=== PATIENT | male | born 1990 | race African-American/Black ===

== ENCOUNTER 2017-06-12 23:15 | Emergency (ER) | payer BC, OTHER ==
--- NOTE | 2017-06-13 00:23 | EDM.PDOC ---
ED HPI GENERAL MEDICAL PROBLEM - General Chief Complaint: Chest Pain Stated Complaint: CHEST PAIN Time Seen by Provider: 06/12/17 23:20 - History of Present Illness INITIAL COMMENTS - FREE TEXT/NARRATIVE: HISTORY AND PHYSICAL: History of present illness: Patient 26-year-old black male presents with chest pain he describes as a sharp increase with movement without associated shortness of breath nausea vomiting palpitations fever chills he denies trauma or other concern denies drugs Review of systems: As per history of present illness and below otherwise all systems reviewed and negative. Past medical history: As per history of present illness and as reviewed below otherwise noncontributory. Surgical history: As per history of present illness and as reviewed below otherwise noncontributory. Social history: No reported history of drug or alcohol abuse. Family history: As per history of present illness and as reviewed below otherwise noncontributory. Physical exam: HEENT: Atraumatic, normocephalic, pupils reactive, negative for conjunctival pallor or scleral icterus, mucous membranes moist, throat clear, neck supple, nontender, trachea midline. Lungs: Clear to auscultation, breath sounds equal bilaterally, chest nontender. Heart: S1S2, regular, negative for clicks, rubs, or JVD. Abdomen: Soft, nondistended, nontender. Negative for masses or hepatosplenomegaly. Negative for costovertebral tenderness. Pelvis: Stable nontender. Genitourinary: Deferred. Rectal: Deferred. Extremities: Atraumatic, negative for cords or calf pain. Neurovascular unremarkable. Neuro: Awake, alert, oriented. Cranial nerves II through XII unremarkable. Cerebellum unremarkable. Motor and sensory unremarkable throughout. Exam nonfocal. Diagnostics: Chest x-ray EKG Therapeutics: None Impression: #1 atypical chest pain Definitive disposition and diagnosis as appropriate pending reevaluation and review of above. chest Pain Score (Numeric/FACES): 7 - Related Data Allergies Allergy/AdvReac Type Severity Reaction Status Date / Time No Known Allergies Allergy Verified 07/21/15 10:05 Home Meds: Home Meds Fluticasone/Salmeterol [Advair 250-50 Diskus] 1 puff INH BID 03/25/14 [History] Social & Family History - Tobacco Use Smoking Status *Q: Never Smoker Years of Tobacco use: 0 Used Tobacco, but Quit: Yes Month Tobacco Last Used: 5 Second Hand Smoke Exposure: Yes - Alcohol Use Days Per Week of Alcohol Use: 1 Number of Drinks Per Day: 1 Total Drinks Per Week: 1 - Recreational Drug Use Recreational Drug Use: No ED ROS GENERAL - Review of Systems Review Of Systems: ROS reveals no pertinent complaints other than HPI. ED EXAM, GENERAL - Physical Exam Exam: See Below (See dictation) Course - Vital Signs Last Recorded V/S: Last Vital Signs Temp 36.4 C 06/12/17 23:16 Pulse 57 L 06/12/17 23:16 Resp 18 06/12/17 23:16 BP 131/62 06/12/17 23:16 Pulse Ox 97 06/12/17 23:16 - Orders/Labs/Meds Orders: Active Orders 24 hr Category Date Time Status EKG 12 Lead [EKG Documentation Completion] [RC] STAT Care 06/12/17 23:44 Active Chest 1V Frontal [CR] Stat Exams 06/12/17 23:44 Taken Departure - Departure Time of Disposition: 00:18 Disposition: Home, Self-Care 01 Condition: Good Clinical Impression: Atypical chest pain - Discharge Information Referrals: PCP,None [Primary Care Provider] - Additional Instructions: The following information is given to patients seen in the emergency department who are being discharged to home. This information is to outline your options for follow-up care. We provide all patients seen in our emergency department with a follow-up referral. The need for follow-up, as well as the timing and circumstances, are variable depending upon the specifics of your emergency department visit. If you don't have a primary care physician on staff, we will provide you with a referral. We always advise you to contact your personal physician following an emergency department visit to inform them of the circumstance of the visit and for follow-up with them and/or the need for any referrals to a consulting specialist. The emergency department will also refer you to a specialist when appropriate. This referral assures that you have the opportunity for followup care with a specialist. All of these measure are taken in an effort to provide you with optimal care, which includes your followup. Under all circumstances we always encourage you to contact your private physician who remains a resource for coordinating your care. When calling for followup care, please make the office aware that this follow-up is from your recent emergency room visit. If for any reason you are refused follow-up, please contact the [facility] emergency department at and asked to speak to the emergency department charge nurse. LUISA [facility] [address] [place] [id number] Motrin Tylenol as directed follow-up primary medical doctor 1-2 days return as needed as discussed - My Orders Last 24 Hours: My Active Orders 06/12/17 23:44 EKG 12 Lead [EKG Documentation Completion] [RC] STAT Chest 1V Frontal [CR] Stat - Assessment/Plan Last 24 Hours: My Active Orders 06/12/17 23:44 EKG 12 Lead [EKG Documentation Completion] [RC] STAT Chest 1V Frontal [CR] Stat
[2017-06-13 03:36] VITALS: BP 107/71
--- NOTE | 2017-06-14 13:04 | CR ---
EXAM DATE: 06/12/17 PATIENT'S AGE: 26 Patient: ELIZA TURCIOS Facility: [place], [place] Site . Site : 1992 Study: XRay Chest [id number]/26/2017 11:54:36 PM Ordering Physician: Yanet Yan Final Report: HISTORY: Chest pain, shortness of breath. TECHNIQUE: One view of the chest. COMPARISON: No prior. FINDINGS: Cardiac size and pulmonary vasculature are within normal limits. There is no acute lung infiltrate or pulmonary edema. No pneumothorax or pleural effusion. No acute bony abnormality. IMPRESSION: No acute disease. Dictated by Artis Roger MD @ 06/12/2017 11:55:50 PM Dictated by: Artis Roger MD @ 06/12/2017 23:55:55 (Electronic Signature) Report Signed by Proxy. [facility] HOSPITALMaritza
== END 2017-06-13 00:45 | disposition home or self-care (01) ==
LOC: MW.ED 23:15
DX: R07.89 Other chest pain (principal)
CPT/HCPCS: 71010; 71010-26; 93005; 99282; 99285-25

== ENCOUNTER 2018-04-22 09:16 | Emergency (ER) | payer BC, OTHER ==
[2018-04-22 09:35] VITALS: BP 108/79
--- NOTE | 2018-04-22 10:22 | EDM.PDOC ---
ED HPI GENERAL MEDICAL PROBLEM - General Chief Complaint: Skin Complaint Stated Complaint: INFECTION ON THE BACK OF NECK Time Seen by Provider: 04/22/18 09:42 Source of Information: Reports: Patient History Limitations: Reports: No Limitations - History of Present Illness INITIAL COMMENTS - FREE TEXT/NARRATIVE: HISTORY AND PHYSICAL: History of present illness: [Adrien is a 27-year-old male here with concerns of an infection on the back of his head. He reports he saw provider at [place], was given antibiotics which cleared it up but reports it came right back. Patient reports she did take a culture. He states this started after he used a friends clippers to cut his hair. He denies any fevers or chills. ] Review of systems: As per history of present illness and below otherwise all systems reviewed and negative. Past medical history: As per history of present illness and as reviewed below otherwise noncontributory. Surgical history: As per history of present illness and as reviewed below otherwise noncontributory. Social history: No reported history of drug or alcohol abuse. Family history: As per history of present illness and as reviewed below otherwise noncontributory. Physical exam: General: sitting comfortably in no acute distress. HEENT: There are multiple small pustules noted on the back of the scalp in the hair line. No surrounding erythema, fluctuance, or induration. Pustules also noted in patients underwood. Atraumatic, normocephalic, pupils reactive, negative for conjunctival pallor or scleral icterus, mucous membranes moist, throat clear , neck supple, nontender, trachea midline. Lungs: Clear to auscultation, breath sounds equal bilaterally, chest nontender. Heart: S1S2, regular, negative for clicks, rubs, or JVD. Extremities: Neurovascular unremarkable. Neuro: Awake, alert, oriented. Cranial nerves II through XII unremarkable. Cerebellum unremarkable. Motor and sensory unremarkable throughout. Exam nonfocal. Notes: Diagnostics: [] Therapeutics: [Keflex 500mg BID x 10 days Mupirocin] Impression: [Folliculitis] Plan: [#1 take antibiotic and use topical mupirocin as instructed #2 Follow up with PCP #3 Return to ED as needed as discussed ] Definitive disposition and diagnosis as appropriate pending reevaluation and review of above. back neck Pain Score (Numeric/FACES): 8 - Related Data Allergies Allergy/AdvReac Type Severity Reaction Status Date / Time No Known Allergies Allergy Verified 04/22/18 09:33 Home Meds: Home Meds Fluticasone/Salmeterol [Advair 250-50 Diskus] 1 puff INH BID 03/25/14 [History] Cephalexin [Keflex] 500 mg PO BID 10 Days #20 cap 04/22/18 [Rx] Mupirocin Calcium [Mupirocin] 15 gm TP BID #30 gram 04/22/18 [Rx] Past Medical History - Past Health History Medical/Surgical History: Denies Medical/Surgical History HEENT History: Reports: None Cardiovascular History: Reports: None Respiratory History: Reports: Asthma Gastrointestinal History: Reports: None Genitourinary History: Reports: None Musculoskeletal History: Reports: None Neurological History: Reports: None Psychiatric History: Reports: None Endocrine/Metabolic History: Reports: None Hematologic History: Reports: None Immunologic History: Reports: None Oncologic (Cancer) History: Reports: None Dermatologic History: Reports: None - Past Surgical History Head Surgeries/Procedures: Reports: None HEENT Surgical History: Reports: None Cardiovascular Surgical History: Reports: None Respiratory Surgical History: Reports: None GI Surgical History: Reports: None Male Surgical History: Reports: None Endocrine Surgical History: Reports: None Neurological Surgical History: Reports: None Musculoskeletal Surgical History: Reports: None Oncologic Surgical History: Reports: None Dermatological Surgical History: Reports: None Social & Family History - Family History Family Medical History: Noncontributory - Tobacco Use Smoking Status *Q: Never Smoker Second Hand Smoke Exposure: No - Caffeine Use Caffeine Use: Reports: Coffee - Recreational Drug Use Recreational Drug Use: No ED ROS GENERAL - Review of Systems Review Of Systems: ROS reveals no pertinent complaints other than HPI. ED EXAM, SKIN/RASH Exam: See Below (see dictation) Course - Vital Signs Last Recorded V/S: Last Vital Signs Temp 36.4 C 04/22/18 09:33 Pulse 58 L 04/22/18 09:33 Resp 18 04/22/18 09:33 BP 108/79 04/22/18 09:33 Pulse Ox 97 04/22/18 09:33 Departure - Departure Time of Disposition: 10:22 Disposition: Admitted As Inpatient 68 Condition: Good Clinical Impression: Folliculitis - Discharge Information Prescriptions: Cephalexin [Keflex] 500 mg PO BID 10 Days #20 cap Mupirocin Calcium [Mupirocin] 15 gm TP BID #30 gram Referrals: PCP,None [Primary Care Provider] - Additional Instructions: The following information is given to patients seen in the emergency department who are being discharged to home. This information is to outline your options for follow-up care. We provide all patients seen in our emergency department with a follow-up referral. The need for follow-up, as well as the timing and circumstances, are variable depending upon the specifics of your emergency department visit. If you don't have a primary care physician on staff, we will provide you with a referral. We always advise you to contact your personal physician following an emergency department visit to inform them of the circumstance of the visit and for follow-up with them and/or the need for any referrals to a consulting specialist. The emergency department will also refer you to a specialist when appropriate. This referral assures that you have the opportunity for follow-up care with a specialist. All of these measure are taken in an effort to provide you with optimal care, which includes your follow-up. Under all circumstances we always encourage you to contact your private physician who remains a resource for coordinating your care. When calling for follow-up care, please make the office aware that this follow-up is from your recent emergency room visit. If for any reason you are refused follow-up, please contact the Emergency Department at and asked to speak to the emergency department charge nurse. [address] [id number] #1 take antibiotic and use topical mupirocin as instructed #2 Follow up with PCP #3 Return to ED as needed as discussed
== END 2018-04-22 10:37 | disposition critical access hospital (66) ==
LOC: MW.ED 09:16
DX: L73.9 Follicular disorder, unspecified (principal)
CPT/HCPCS: 99282

== ENCOUNTER 2022-04-03 04:21 | Emergency (ER) | payer OTHER ==
[2022-04-03] MEDS ORDERED: Albuterol/Ipratropium 3.0-0.5 MG/3 ML Neb Soln NEB ONE (04:31)
[2022-04-03] MEDS ORDERED: predniSONE 20 MG Tab PO ONE (04:31)
[2022-04-03 05:02] VITALS: BP 128/74; PULSE 78
== END 2022-04-03 05:00 | disposition home or self-care (01) ==
LOC: MW.ED 04:21
DX: J45.901 Unspecified asthma with (acute) exacerbation (principal)
CPT/HCPCS: 94640; 99285; A9270; 99283; J7620-GY

== ENCOUNTER 2023-09-01 10:10 | Emergency (ER) | payer OTHER ==
[2023-09-01] MEDS ORDERED: Albuterol/Ipratropium 3.0-0.5 MG/3 ML Neb Soln ONE ×2 (10:16→10:17)
[2023-09-01] MEDS ORDERED: Albuterol/Ipratropium 3.0-0.5 MG/3 ML Neb Soln NEB ONE (10:32)
[2023-09-01 10:51] VITALS: BP 142/74; PULSE 100
== END 2023-09-01 10:48 | disposition home or self-care (01) ==
LOC: MW.ED 10:10
DX: J45.901 Unspecified asthma with (acute) exacerbation (principal); Z79.899 Other long term (current) drug therapy
CPT/HCPCS: 99283; 99284; J7620-GY

== ENCOUNTER 2024-09-07 08:20 | Emergency (ER) | payer OTHER ==
[2024-09-07] MEDS: Albuterol 0.083% 2.5 MG/3 ML Neb Soln NEB ONE (08:50)
[2024-09-07 09:03] VITALS: BP 138/81; PULSE 81
== END 2024-09-07 09:02 | disposition home or self-care (01) ==
LOC: MW.ED 08:20
DX: Z76.0 Encounter for issue of repeat prescription (principal); J45.909 Unspecified asthma, uncomplicated; Z79.51 Long term (current) use of inhaled steroids; Z79.899 Other long term (current) drug therapy
CPT/HCPCS: 94640; 99284; J7620-GY